=== PATIENT | female | born 1950 | race Caucasian/White ===

== ENCOUNTER → 2017-01-21 | Outpatient (CLI) | payer BC ==
--- NOTE | 2017-01-21 14:58 | US ---
EXAM DESCRIPTION: Soft Tissue,Extremity CLINICAL HISTORY: 66 years Female, LEG SWELLING COMPARISON: None. TECHNIQUE: Grayscale and color Doppler imaging of the soft tissues of the posterior proximal lateral calves within the area of palpable abnormality. FINDINGS: Today's exam demonstrated normal caliber musculature and adipose tissue within the left calf. There is a intramuscular hematoma noted on the right posterior aspect of the proximal calf which measures 6.1 x 5.7 x 1.0 cm. IMPRESSION: Intramuscular right calf hematoma. This can be seen in setting of a plantaris tendon rupture. Electronically signed by: Tony Sanford MD 01/21/2017 2:56 PM PALLETIZER OPERATOR
--- NOTE | 2017-01-21 14:58 | US ---
EXAM DESCRIPTION: Venous,Lower Extremity LT CLINICAL HISTORY: LEG SWELLING COMPARISON: None Available. TECHNIQUE: Left lower extremity extremity venous ultrasound was performed. Static patel scale, color and spectral doppler images were saved to the patients medical record. FINDINGS: There is no DVT identified. There is normal color flow observed with good flow augmentation. All deep veins compress normally. IMPRESSION: Negative for DVT Electronically signed by: Tony Sanford MD 01/21/2017 2:57 PM DOCTOR CHIROPRACTIC
--- NOTE | 2017-01-21 14:59 | US ---
EXAM DESCRIPTION: Venous,Lower Extremity RT CLINICAL HISTORY: LEG SWELLING COMPARISON: None Available. TECHNIQUE: Right lower extremity venous ultrasound was performed. Static patel scale, color and spectral doppler images were saved to the patients medical record. FINDINGS: There is no DVT identified. There is normal color flow observed with good flow augmentation. All deep veins compress normally. IMPRESSION: Negative for DVT Electronically signed by: Tony Sanford MD 01/21/2017 2:57 PM HYDRAULIC SPECIALIST
== END | disposition home or self-care (01) ==
LOC: RAD 13:08
PROVIDERS: ATTEND Nurse Practitioner Family
DX: M79.89 Other specified soft tissue disorders (principal)

== ENCOUNTER → 2017-04-20 | Outpatient (CLI) | payer BC | END | disposition home or self-care (01) | LOC: GMAJ 10:17 | PROVIDERS: ATTEND Family Medicine | DX: I10 Essential (primary) hypertension (principal) ==

== ENCOUNTER 2017-12-01 05:46 | Day surgery (SDC) | payer MEDICARE ==
[2017-12-01] MEDS ORDERED: LIDOCAINE 1% 10 ML VIAL INJ ONE (07:00)
[2017-12-01] MEDS ORDERED: PROPOFOL 200 MG/20 ML VIAL IV ONE (07:00)
[2017-12-01] MEDS ORDERED: LACTATED RINGERS 1,000 ML ONE (07:07)
--- NOTE | 2017-12-01 08:30 | OP ---
DATE OF PROCEDURE: 12/01/17 PREOPERATIVE DIAGNOSIS: 1. Colon cancer screen. POSTOPERATIVE DIAGNOSIS: 1. Colon cancer screen. 2. External hemorrhoids. 3. Diverticulosis throughout the colon, severe in the sigmoid region. 4. Polyp in the upper rectum at 20 cm. PROCEDURE: 1. Colonoscopy with polypectomy. SURGEON: Akhil Gunter MD. ANESTHESIA: MAC by Perry Vazquez CRNA. ESTIMATED BLOOD LOSS: Less than 2 mL. COMPLICATIONS: None apparent. TECHNIQUE: After informed consent was obtained from the patient, the patient was taken to the Endoscopy Suite and put in the left lateral decubitus position. After adequate IV sedation was obtained, a digital rectal exam was performed. The patient was noted to have very large external hemorrhoids, decreased sphincter tone and no intraluminal masses. The colonoscope was then passed with good visualization all the way through the colon. The bowel prep was excellent. The cecum was identified by the presence of ileocecal valve and appendiceal orifice. The scope was then withdrawn slowly over the next 10 minutes and a good look at the entire colonic mucosa was obtained. There were small diverticula noted in the ascending and transverse colon. There was rather significant diverticular disease in the descending and sigmoid region. There was a single polyp found in the proximal end of the rectum at about 20 cm. This polyp was removed with the cold biopsy forceps in piecemeal fashion with good hemostasis and full retrieval of the polyp. The polyp was sent for pathology. The scope was removed. The patient tolerated the procedure well. The patient was transported to the outpatient area in good condition. She will followup with me in two weeks. I have recommended a high fiber diet. #[id number] [facility]
[2017-12-01 10:23] VITALS: BP 116/78; TEMP 98.4; O2SAT 95
== END 2017-12-01 09:00 | disposition home or self-care (01) ==
LOC: AMB 05:46
PROVIDERS: ATTEND Family Medicine
DX: Z12.11 Encounter for screening for malignant neoplasm of colon (principal); D12.8 Benign neoplasm of rectum; K57.30 Diverticulosis of large intestine without perforation or abscess without bleeding; K64.4 Residual hemorrhoidal skin tags; I10 Essential (primary) hypertension; K21.9 Gastro-esophageal reflux disease without esophagitis; E66.9 Obesity, unspecified; Z88.7 Allergy status to serum and vaccine; Z88.8 Allergy status to other drugs, medicaments and biological substances; Z91.040 Latex allergy status; Z79.899 Other long term (current) drug therapy
CPT/HCPCS: 00812; 45380; 88305; J3490; J7120

== ENCOUNTER → 2017-12-26 | Outpatient (CLI) | payer MEDICARE ==
--- NOTE | 2017-12-28 16:51 | MAM ---
EXAM DESCRIPTION: 3D Screening BILATERAL : Digital Mammography. CLINICAL HISTORY: 67 years Female SCREENING . No complaints. Mother with breast cancer. Hysterectomy. No HRT. COMPARISON: None.. No prior reports available. TECHNIQUE: Bilateral CC and MLO projection full-field images, 3-D tomosynthesis digital mammographic technique. Also bilateral synthesized CC/ MLO full-field images. CAD not utilized. FINDINGS: The breast parenchymal density pattern is: Scattered areas of fibroglandular density. No skin thickening or nipple retraction intramammary lymph node lateral left breast. Intramammary lymph node anterior medial right breast. Few bilateral solitary microcalcifications. No focal, stellate mass or density, focal asymmetry , and no suspicious microcalcifications bilaterally. IMPRESSION: BI-RADS CATEGORY: 2 - BENIGN FINDINGS. FOLLOW UP: Routine digital bilateral screening, one year interval from December 2017. Written communication explaining the IMPRESSION and follow-up, will be mailed to the patient and referring health care provider. According to the [employer], yearly mammograms are recommended starting at age 40 and continuing as long as a woman is in good health. Any breast change noted on a breast self-exam should be reported promptly to the patient's healthcare provider. Breast MRI is recommended for women with an approximately 20-25% or greater lifetime risk of breast cancer, including women with a strong family history of breast or ovarian cancer and women who have been treated for Hodgkin's disease. A negative mammographic report should not delay tissue diagnosis in patients with significant clinical history or physical findings. Extremely dense breast tissue limits the sensitivity of digital mammography. Electronically signed by: Herbert German MD 12/28/2017 4:50 PM CHEMISTRY LABORATORY TECHNICIAN
== END ==
LOC: MAMMO 13:00
PROVIDERS: ATTEND Family Medicine
DX: Z12.31 Encounter for screening mammogram for malignant neoplasm of breast (principal)

== ENCOUNTER → 2019-06-07 | Outpatient (CLI) | payer MEDICARE ==
--- NOTE | 2019-06-08 19:30 | MAM ---
EXAM DESCRIPTION: 3D Screening BILATERAL : Digital Mammography. CLINICAL HISTORY: 68 years Female ANNUAL SCREENING . No complaints or personal history of breast cancer. Mother with breast cancer. Childbirth. Postmenopausal/hysterectomy 1998. No HRT. Lifetime risk of developing breast cancer (Tyrer-Cuzick model)(%): 11.3. COMPARISON: Bilateral screening digital breast tomosynthesis 12/26/2017.. TECHNIQUE: Bilateral CC and MLO projection full-field images, digital tomosynthesis mammographic technique. Bilateral digital 2-D full-field MLO images. CAD not available for tomosynthesis or 2-D images. FINDINGS: The breast parenchymal density pattern is: Scattered areas of fibroglandular density. No skin thickening or nipple retraction. No new focal, stellate mass or density, focal asymmetry , and no suspicious microcalcifications bilaterally. Stable mammograms compared to prior study. IMPRESSION: BI-RADS CATEGORY: 1 - NEGATIVE FOLLOW UP: Routine digital bilateral screening, one year interval from May 2019. Written communication explaining the findings and follow-up, will be mailed to the patient and referring health care provider. According to the [employer], yearly mammograms are recommended starting at age 40 and continuing as long as a woman is in good health. Any breast change noted on a breast self-exam should be reported promptly to the patient's healthcare provider. Breast MRI is recommended for women with an approximately 20-25% or greater lifetime risk of breast cancer, including women with a strong family history of breast or ovarian cancer and women who have been treated for Hodgkin's disease. A negative mammographic report should not delay tissue diagnosis in patients with significant clinical history or physical findings. Extremely dense breast tissue limits the sensitivity of digital mammography. Electronically signed by: Herbert German MD 06/08/2019 7:29 PM CDT
== END ==
LOC: MAMMO 06-05 10:00
PROVIDERS: ATTEND Family Medicine
DX: Z12.31 Encounter for screening mammogram for malignant neoplasm of breast (principal)

== ENCOUNTER → 2020-05-07 | Outpatient (CLI) | payer MEDICARE | DX: R00.2 Palpitations (principal) ==

== ENCOUNTER 2020-07-20 16:44 | Emergency (ER) | payer MEDICARE ==
[2020-07-20 17:25] VITALS: TEMP 97.7
--- NOTE | 2020-07-20 18:00 | ED.PDOC ---
History of Present Illness - General Chief Complaint: General Stated Complaint: left knee pain Time Seen by Provider: 07/20/20 17:35 Source: patient, RN notes reviewed, Vital Signs reviewed Exam Limitations: no limitations - History of Present Illness Initial Comments: Is a 69-year-old white female who presents with complaints of left knee pain for the last couple of days. It became acutely worse today and she could not wait until Tuesday to see her doctor. The pain is throbbing/sharp stabbing in nature. It is moderate in intensity. Worse with walking or bending over. Better with rest. Her tramadol helps ease the pain. There is no radiation of the pain. It is behind the left knee. She had some mild trauma to the knee 2 to 3 days ago. Timing/Duration: other - 2 to 3 days Severity: moderate Improving Factors: immobilization, rest Worsening Factors: movement Associated Symptoms: denies symptoms Allergies/Adverse Reactions: Allergies Erythromycin Allergy (Verified 07/20/20 17:26) Home Medications: Ambulatory Orders Lisinopril & Hydrochlorothiazi [Lisinopril/Hctz 20-25 mg] 1 tab PO DAILY 11/24/17 Tramadol HCl [Ultram] 50 mg PO Q6H #16 tab 07/20/20 Review of Systems - Review of Systems Constitutional: States: no symptoms reported, see HPI. Denies: chills, fever, malaise, weakness EENTM: States: no symptoms reported. Denies: eye pain, blurred vision, double vision Respiratory: States: no symptoms reported. Denies: cough, short of breath Cardiology: States: no symptoms reported. Denies: chest pain, palpitations, syncope Gastrointestinal/Abdominal: States: no symptoms reported. Denies: abdominal pain, diarrhea, nausea, vomiting Genitourinary: States: no symptoms reported. Denies: dysuria, frequency Musculoskeletal: States: see HPI, joint pain - Left knee, joint swelling - Left knee. Denies: back pain Skin: States: no symptoms reported. Denies: change in color, rash Neurological: States: no symptoms reported. Denies: tingling, tremors, weakness Endocrine: States: no symptoms reported, increased hunger, increased thirst, increased urine Hematologic/Lymphatic: States: no symptoms reported All other Systems: No Change from Baseline Past Medical History (General) - Patient Medical History Hx Seizures: No Hx Stroke: No Hx Dementia: No Hx Asthma: No Hx of COPD: No Hx Cardiac Disorders: No Hx Congestive Heart Failure: No Hx Pacemaker: No Hx Hypertension: Yes Hx Thyroid Disease: No Hx Diabetes: Yes Hx Gastroesophageal Reflux: Yes Hx Renal Disease: No Hx Cancer: No Hx of HIV: No Hx Hepatitis C: No Hx MRSA: Yes MRSA Source:: Wound Surgical History: Hysterectomy - Vaccination History Hx Tetanus, Diphtheria Vaccination: No Hx Influenza Vaccination: Yes - Social History Hx Tobacco Use: No Hx Alcohol Use: No Family Medical History - Family History Mother Family History: No Known Physical Exam - Physical Exam General Appearance: Alert, Comfortable, Well Developed, Well Groomed, Well Hydrated, Well Nourished Eye Exam: bilateral normal Ears, Nose, Throat: hearing grossly normal, normal ENT inspection, normal pharynx Neck: non-tender, full range of motion, supple, normal inspection Respiratory: chest non-tender, lungs clear, normal breath sounds, no respiratory distress Cardiovascular/Chest: normal peripheral pulses, regular rate, rhythm, no edema, no gallop, no JVD Peripheral Pulses: radial,right: 2+, radial,left: 2+ Gastrointestinal/Abdominal: normal bowel sounds, non tender, soft Back Exam: normal inspection, no CVA tenderness, no vertebral tenderness Extremity: normal range of motion, swelling - Left anterior and posterior knee. Negative Homans sign. No cords felt. Neurologic: commander internal affairs II-XII nml as tested, no motor/sensory deficits, alert, normal mood/affect, oriented x 3 Skin Exam: normal color, warm/dry Lymphatic: no adenopathy Progress - Progress Progress: Differential diagnosis: Tibial plateau fracture, Velazco's cyst, knee sprain, DVT among others. 07/20/20 18:51 X-rays negative for fracture. Patient somewhat improved after Toradol I believe that DVT is less likely than the knee sprain, but will recommend patient follow-up with PCP on Tuesday for an outpatient ultrasound of the leg to rule out DVT. I discussed this plan of care with the patient she voices understanding and agreement. I will discharge the patient home with some additional Ultram as she only has 4 leftover at home. Liban Macdonald M.D. #[id number] - Results/Orders Results/Orders: EXAM DESCRIPTION: X-ray Knee, Left Complete; 3 views CLINICAL HISTORY: 69 years Female, left knee pain and swelling s/p trauma COMPARISON: None. FINDINGS/IMPRESSION: 1. No acute fracture or dislocation. 2. Soft tissues are unremarkable. Electronically signed by: Balbir Carson MD 07/20/2020 6:13 PM - EKG/XRAY/CT CT Ordered: No Departure - Departure Clinical Impression: Knee pain Qualifiers: Chronicity: acute Laterality: left Qualified Code(s): M25.562 - Pain in left knee Time of Disposition: 18:53 Disposition: Discharge to Home or Self Care Condition: Good Departure Forms: ED Discharge - Pt. Copy, Patient Portal Self Enrollment Instructions: Knee Pain (DC) Activity: walking as tolerated, no pushing/pulling with affected limb Referrals: Akhil Gunter MD [Primary Care Provider] - 1-5 Days (Follow up on outpt ultrasound for dvt.) Prescriptions: Tramadol HCl [Ultram] 50 mg PO Q6H #16 tab Home Medications: Ambulatory Orders Lisinopril & Hydrochlorothiazi [Lisinopril/Hctz 20-25 mg] 1 tab PO DAILY 11/24/17 Tramadol HCl [Ultram] 50 mg PO Q6H #16 tab 07/20/20
--- NOTE | 2020-07-20 18:14 | RAD ---
EXAM DESCRIPTION: X-ray Knee, Left Complete; 3 views CLINICAL HISTORY: 69 years Female, left knee pain and swelling s/p trauma COMPARISON: None. FINDINGS/IMPRESSION: 1. No acute fracture or dislocation. 2. Soft tissues are unremarkable. Electronically signed by: Balbir Carson MD 07/20/2020 6:13 PM CDT
[2020-07-20] MEDS ORDERED: KETOROLAC TROMETHAMINE INJ 30 MG/ML VIAL IM ONE (18:50)
[2020-07-20 19:01] VITALS: BP 122/80; O2SAT 99
== END 2020-07-20 19:01 | disposition home or self-care (01) ==
LOC: ER 16:44
DX: M25.562 Pain in left knee (principal); M25.462 Effusion, left knee; K21.9 Gastro-esophageal reflux disease without esophagitis; I10 Essential (primary) hypertension; E11.9 Type 2 diabetes mellitus without complications; Z79.899 Other long term (current) drug therapy; Z88.1 Allergy status to other antibiotic agents
CPT/HCPCS: 36415; 73562; 80048; J1885

== ENCOUNTER → 2020-12-11 | Outpatient (CLI) | payer MEDICARE | LOC: GMAJ 14:35 | PROVIDERS: ATTEND Family Medicine | DX: I10 Essential (primary) hypertension (principal) ==